=== PATIENT | male | born 1960 | race Caucasian/White ===

== ENCOUNTER 2023-05-18 18:18 | Emergency (ER) | payer OTHER, SELFPAY ==
[2023-05-18 18:25] VITALS: BP 176/107
[2023-05-18 19:00] LABS: % Basophils 0.2 % (0-2); % Eosinophils 3.3 % (0-6); % Immature Granulocytes 0.2 % (0-0.5); % Lymphocytes 27.6 % (20.5-51.1); % Neutrophils 62.7 % (42.2-75.2); Absolute Eosinophils 0.3 10^3/uL (0-0.7); Absolute Lymphocytes 2.7 10^3/uL (1.2-3.4); Absolute Monocytes 0.6 10^3/uL (0.1-0.6); Hemoglobin 14.6 g/dL (13.0-18.0); Mean Corp Hgb Conc. 35.6 g/dL (33.0-37.0); Mean Corpuscular Hgb 31.1 pg (27.0-31.0); Mean Corpuscular Volume 87.2 fL (80.0-94.0); Mean Platelet Volume 10.8 fL (7.4-10.4); Nucleated Red Blood Cells % 0 % (-); Platelet Count 204 10^3/uL (130-400); White Blood Cell Count 9.6 10^3/uL (4.8-10.8)
[2023-05-18 19:16] LABS: ALT (SGPT) 23 U/L (0-50); AST (SGOT) 31 U/L (17-59); Albumin 4.7 g/dl (3.5-5.0); Alkaline Phosphatase 97 U/L (38-126); Blood Urea Nitrogen 12 mg/dl (9-20); Calcium 9.6 mg/dl (8.4-10.2); Carbon Dioxide 30 mmol/L (22-30); Chloride 101 mmol/L (98-107); Glucose 138 mg/dl (70-99); Sodium 139 mmol/L (135-145); Total Bilirubin 0.5 mg/dl (0.2-1.3); Total Protein 7.7 g/dl (6.3-8.2); eGFR > 60.00
[2023-05-18 19:23] LABS: Troponin I < 0.012 ng/ml
[2023-05-18 20:51] VITALS: BP 154/88
[2023-05-18 21:00] VITALS: BP 149/81
--- NOTE | 2023-05-18 21:19 | ED.GENMED ---
History of Present Illness
General
Chief Complaint: Chest Pain
Source: patient
Exam Limitations: none
Time Seen by Provider: 05/18/23 20:47
Travel History
Have you had any contact with someone who has COVID-19?: No
Do you have any symptoms of coronavirus? Fever > 100 degrees, chills, cough, shortness of breath, sore throat, loss of taste or smell, muscle aches, or headache?: No
History of Present Illness
History of Present Illness:
This is a 62 year old male that comes in with c/o chest pain. States that today he was at his [employer] and he mentioned to him that he has been having chest pain for the past couple of weeks. States that he was told to go see his PCP as his
BP was elevated at that time. Patient called the PCP and he was told to come to the ER. Patient is due to have a Endoscopy and Colonoscopy and they pushed it off for three weeks due to his complaint. States that he gets a tightness in the left chest
that comes and goes. States that he is under a lot of stress for work and financial. Denies any fever, chills, SOB, nausea, vomiting, diarrhea, headache, dizziness, urinary burning.
Past History
Past History
ED Past Medical History: NIDDM and Other (Ulcers)
ED Past Surgical History: None
Social History
Tobacco: Non-smoker
Alcohol: None
Personal:
Living: with family
Employment: Employed
Review of Systems
Review of Systems
All Other Systems: ROS reviewed and negative except as documented in HPI and ROS
Constitutional: Reports no symptoms; Denies fever or chills
EENT: Reports no symptoms
Respiratory: Denies cough or trouble breathing
Cardiac: Reports chest pain
ABD/GI: Reports abdominal pain; Denies nausea, vomiting or diarrhea
: Reports no symptoms; Denies dysuria, frequency or urgency
Musculoskeletal: Reports no symptoms
Skin: Reports no symptoms
Neurological: Reports no symptoms; Denies dizzy or headache
Psychiatric: Reports no symptoms
Phy Exam
General Physical Exam
General Presentation: no apparent distress
General age: appears stated age
General Skin: warm and dry
General Habitus: normal
General Mental: alert
General Hydration: appears well hydrated
ENT Exam
ENT Exam: TM's normal, pharynx normal and neck supple
Eye Exam
Eye Exam: EOMI
Cardiovascular Exam
Cardiovascular Exam: regular rate/rhythm, no edema, no murmur and normal peripheral pulses
Pulmonary Exam
Pulmonary Exam: lungs clear, no respiratory distress, no rales, chest non tender, no crackles, no rhonchi, no wheezing and no cough
Gastrointestinal Exam
Gastrointestinal Exam: normal bowel sounds, non tender, soft, no organomegaly, no pulsatile mass and non distended
Musculoskeletal Exam
Musculoskeletal Exam: full ROM and no edema
Skin Exam
Skin Exam: normal color, warm/dry, no rash and no petechia
Psychiatric Exam
Psychiatric Exam: normal mood/affect
Scores
Heart Score for Chest Pain Patients
STEMI patient?: No
History: Slightly or Non-Suspicious
ECG: Normal
Age: >45 - <65 years
Risk Factors: 1 or 2 Risk Factors
Troponin: </= Normal Limit
Heart Score for Chest Pain Patients: 2
Heart Score Risk: 2.5% MACE over next 6 weeks
Course
Orders/Labs/Results
Orders:
Orders
05/18/23 18:19
Electrocardiogram (*1) Urgent
Reason for Study: Chest Pain
EKG- Treatment ONCE
05/18/23 18:55
Complete Blood Count/With Diff Urgent
Comprehensive Metabolic Panel Urgent
Troponin I Urgent
05/18/23 21:17
CR Chest - 2 Views Urgent
Comment:
Reason For Exam: cHEST PAIN
05/18/23 21:18
EKG- Treatment ONCE
Pantoprazole [Protonix] 40 mg PO NOW STA
05/18/23 21:47
D-Dimer Urgent
Troponin I Urgent
05/18/23 21:55
Electrocardiogram (*1) Urgent
Reason for Study: Chest Pain
Other Reason for Exam: repeat with troponin
Abnormal Lab Results
05/18/23
18:55
MCH 31.1 H pg
(27.0-31.0)
MPV 10.8 H fL
(7.4-10.4)
Glucose 138 H mg/dl
(70-99)
05/18/23 18:55
05/18/23 18:55
Glucose nonfasting. Troponin <0.012
D-dimer 0.32, Second Troponin <0.012
Vital Signs
Initial and Last Documented VS:
Initial Vital Signs
Temp Pulse Resp BP Pulse Ox
98.7 F 78 18 176/107 98
05/18/23 18:25 05/18/23 18:25 05/18/23 18:25 05/18/23 18:25 05/18/23 18:25
Last Documented Vital Signs
Temp Pulse Resp BP Pulse Ox
98.7 F 67 13 144/89 97
05/18/23 18:25 05/18/23 22:45 05/18/23 22:45 05/18/23 22:10 05/18/23 22:45
MDM/Problems Addressed
Differential Diagnosis Includes:
Coronary disease, GERD
MDM/Problems Addressed:
This is a 62 year old male that comes in with c/o chest pain. States that this has been going on for the past couple of weeks and the tightness comes and goes. Patient is to have a colonoscopy and endoscopy but they put it off for three weeks due to
his complaints.
Will get labs, Chest x-ray.
Repeat ECG: rate 69, NSR, Normal axis, Normal QRS, negative for ischemia. Checked by Dr. Albert
Back into see patient. Explained that his second Troponin is also normal. Will place patient on the Cardiology hot line for further evaluaiton. Will also have patient start Protonix and suggested that he got off the caffeine. Patient to return with
increaesed pain, or any other concerns.
Chronic conditions affecting care: DM
Acute Exacerbation and/or Progression of Chronic Illness:
Ulcers
*Radiology
Radiology exam reviewed: radiology read reviewed (There is no acute cardiopulmonary process. )
*Pulse Oximetry
Patient hypoxic: no
*EKG
Interpreted by ED Provider?: Yes
Heart Rate: 70
Rate: normal
Rhythm: sinus
Lyman: normal axis
Interval: normal interval
QRS Pattern: normal QRS
Ischemia: no ischemia
*A [employer] Interpretation
Rate: normal
Heart Rate: 72
Rhythm: sinus
*Critical Care Note
Total Time (30-74mins, 75-104mins- exclusive of procedures): Not Applicable
ED Attending Note
-
Portions of this chart may have been created with voice recognition software.� Occasional wrong word or��sound alike� substitutions may have occurred due to the inherent limitations of voice recognition software.
Discharge Plan
Departure
Patient Disposition: Home (Routine Discharge)
Date of Disposition: 05/18/23
Time of Disposition: 23:22
Patient with high blood pressure during this ER visit?: Yes
Condition: Good
Covid-19: Not Applicable
Discharge Problem:
Chest pain
Instructions: Chest Pain (DC), Chest Pain CBC Follow Up, BLOOD PRESSURE
Prescriptions:
New
pantoprazole [Protonix] 40 mg tablet,delayed release (DR/EC)
40 mg PO DAILY Qty: 30 0RF
Referrals:
Vianney Matias DO [Family Provider] - Call in 1-3 days for appt
Activity Restrictions/Additional Instructions:
As discussed, your blood work is normal along with both Troponin and your chest x-ray. You have been place on the Cardiology hot line. This means that they will call you the next business day and get you set up for further evaluation. You have also
had a prescription for Protonix sent to your pharmacy. Please try and stop the Caffeine as this is hard on the stomach lining, increases your blood pressure and is hard on the kidneys. IF YOU HAVE INCREASED CHEST PAIN, OR YOU HAVE ANY OTHER CONCERNS
PLEASE RETURN TO THE EMERGENCY ROOM.
Interventions
Interventions:
*Risk Screen - Suicide Last Done: 05/18/23 22:31
*General Assessment Last Done: 05/18/23 22:31
*Neglect/Abuse Screening Last Done: 05/18/23 20:55
ED- Fall Risk Assessment Last Done: 05/18/23 20:55
*ED COVID-19 Vaccine History Last Done: 05/18/23 22:31
ED- Cardiac Assessment Last Done: 05/18/23 20:55
ED- Neurological Assessment Last Done: 05/18/23 20:55
ED- Pulmonary Assessment Last Done: 05/18/23 20:55
[2023-05-18] MEDS: PROTONIX 40 MG PO (21:39)
[2023-05-18 22:05] LABS: D-Dimer 0.32 ug/mlFEU (0.00-0.50)
[2023-05-18 22:10] VITALS: BP 144/89
[2023-05-18 22:18] LABS: Troponin I < 0.012 ng/ml
[2023-05-18 23:00] VITALS: BP 159/101
== END 2023-05-18 23:35 | disposition home or self-care (01) ==
LOC: EMR 18:18
PROVIDERS: Clinical Nurse Specialist Family Health; Emergency Medicine; EMERGENCY PHYSICIAN Student in an Organized Health Care Education/Training Program; FAMILY PHYSICIAN Family Medicine
DX: R07.89 Other chest pain (principal)
CPT/HCPCS: 99283; 71046; 80053; 84484; 85025; 85379; 93005

== ENCOUNTER → 2023-06-08 13:52 | Outpatient (REF) | payer OTHER, SELFPAY | LOC: DHCBC HW 13:52 | PROVIDERS: ATTENDING PHYSICIAN Internal Medicine Cardiovascular Disease; FAMILY PHYSICIAN Family Medicine | DX: R07.89 Other chest pain (principal); I10 Essential (primary) hypertension; E11.9 Type 2 diabetes mellitus without complications | CPT/HCPCS: 93306 ==

== ENCOUNTER → 2023-06-13 09:53 | Outpatient (REF) | payer OTHER, SELFPAY | LOC: RCS 09:53 | PROVIDERS: ATTENDING PHYSICIAN Internal Medicine Cardiovascular Disease; FAMILY PHYSICIAN Family Medicine | DX: R07.89 Other chest pain (principal); I10 Essential (primary) hypertension; E11.9 Type 2 diabetes mellitus without complications | CPT/HCPCS: 93017 ==

== ENCOUNTER → 2023-06-20 06:26 | Day surgery (SDC) | payer OTHER, SELFPAY ==
[2023-06-20 09:24] LABS: Glucose - Point of Care 80 mg/dl (70-99)
== END ==
LOC: GI 06:26
PROVIDERS: ATTENDING PHYSICIAN Internal Medicine Gastroenterology
DX: Z12.11 Encounter for screening for malignant neoplasm of colon (principal); R19.4 Change in bowel habit; K57.30 Diverticulosis of large intestine without perforation or abscess without bleeding; R12 Heartburn; K31.89 Other diseases of stomach and duodenum; K29.50 Unspecified chronic gastritis without bleeding; B96.81 Helicobacter pylori [H. pylori] as the cause of diseases classified elsewhere; K64.8 Other hemorrhoids
CPT/HCPCS: 43239; 88305; 82962; 88342

== ENCOUNTER → 2023-07-07 07:23 | Outpatient (REF) | payer OTHER, SELFPAY | LOC: DHCBC/DCA 07:23 | PROVIDERS: ATTENDING PHYSICIAN Internal Medicine Cardiovascular Disease; FAMILY PHYSICIAN Family Medicine | DX: R07.89 Other chest pain (principal); I10 Essential (primary) hypertension; E78.00 Pure hypercholesterolemia, unspecified | CPT/HCPCS: 78452; 93017; A9500 ==